=== PATIENT | female | born 1990 | race Two or more races ===

== ENCOUNTER 2025-08-29 14:18 | Emergency (ER) | payer MEDICAID, SELFPAY ==
[2025-08-29 14:19] VITALS: BMI 28.3
[2025-08-29 14:24] VITALS: BP 134/81; PULSE 65; RESP 18; TEMP 36.8; O2SAT 99
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
--- NOTE | 2025-08-29 14:36 | EKG_ITS ---
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
[2025-08-29 15:09] LABS: Basophils # (Auto) 0.1 Thou/mm3 (0.0-0.2); Basophils % (Auto) 1 % (0-2.5); Eosinophils # (Auto) 0.3 Thou/mm3 (0.0-0.5); Eosinophils % (Auto) 3 % (0-10); Hematocrit 36.8 % (36.0-46.0); Hemoglobin 12.8 g/dL (12.0-16.0); Immature Granulocytes Auto 0.02 Thou/mm3 (0.00-0.00); Lymphocytes # (Auto) 2.4 Thou/mm3 (1.0-4.8); Lymphocytes % (Auto) 26 % (10-50); Mean Corpuscular HGB Conc 34.8 g/dl (31.0-37.0); Mean Corpuscular Hemoglobin 29.8 pg (25.0-35.0); Mean Corpuscular Volume 86 fL (80-100); Monocytes # (Auto) 0.6 Thou/mm3 (0.0-0.8); Monocytes % (Auto) 6 % (0-12); Neutrophils # (Auto) 6.1 Thou/mm3 (1.8-7.7); Neutrophils % (Auto) 64 % (37-80); Nucleated Red Blood Cell # 0.00 Thou/mm3 (0.00-0.00); Nucleated Red Blood Cell % 0 /100 WBC (0); Platelet Count 225 Thou/mm3 (140-440); RDW Standard Deviation 37.4 fL (36.4-46.3); Red Blood Count 4.29 Miln/mm3 (4.00-5.20); White Blood Count 9.5 Thou/mm3 (3.6-11.0)
[2025-08-29 15:23] LABS: B-Type Natriuretic Peptide 22 pg/mL (0-100)
[2025-08-29 15:25] LABS: Alanine Aminotransferase 14 U/L (10-49); Albumin, Serum 4.6 gm/dL (3.5-5.0); Albumin/Globulin Ratio 2.0 (1.2-2.2); Alkaline Phosphatase 72 U/L (46-116); Anion Gap 9 (7-16); Aspartate Amino Transferase 19 U/L (0-34); BUN/Creatinine Ratio 14 Ratio (12-20); Bilirubin,Total 0.3 mg/dL (0.3-1.2); Blood Urea Nitrogen 11 mg/dL (9-23); Calcium 9.0 mg/dL (8.3-10.6); Calcium (Corrected) 9.0 mg/dL (8.5-10.1); Carbon Dioxide 27.2 mMol/L (20.0-31.0); Chloride 106 mMol/L (98-107); Creatinine (Component) 0.8 mg/dL (0.6-1.3); Estimated Creatinine Clearance 86.6 mL/min (>60); Globulin 2.3 gm/dL (2.3-3.5); Glucose 88 mg/dL (74-106); Osmolality,Calculated 281 (275-295); Potassium 3.9 mMol/L (3.4-5.1); Sodium 142 mMol/L (136-145); Total Protein 6.9 gm/dL (5.7-8.2); Troponin I < 0.020 ng/mL (0.0-0.045); eGFR > 60 See Note
[2025-08-29 15:30] LABS: Collection Type, Urine Clean Catch
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
[2025-08-29 16:27] LABS: Bilirubin,Urine Negative (Negative); Blood,Urine 3+ (Negative); Clarity,Urine Clear (Clear/Hazy); Color,Urine Lt-Yellow (Lt Yel-Yel); Culture Indicated,Urine Not Indicated; Glucose, Urine Negative (Negative); Ketones,Urine Negative (Negative); Leukocyte Esterase,Urine Negative (Negative); Nitrite,Urine Negative (Negative); PH,Urine 7.5 (5.0-7.0); Protein,Urine Negative (Neg - Trace); RBC,Urine 6 /hpf (0-3); Specific Gravity,Urine 1.019 (1.001-1.035); Squamous Epithelial Cell,Urine 1 /hpf (0-5); Urobilinogen,Urine Negative mg/dL (0.0-1.0); WBC,Urine < 1 /hpf (0-5)
[2025-08-29 17:07] VITALS: PULSE 68; RESP 18; TEMP 37.1; O2SAT 99
== END 2025-08-29 17:09 | disposition home or self-care (01) ==
PROVIDERS: Nurse Practitioner Family; Emergency Provider Emergency Medicine; PCP Family Medicine
DX: S09.90XA Unspecified injury of head, initial encounter (principal); Y92.410 Unspecified street and highway as the place of occurrence of the external cause
CPT/HCPCS: 36415; 70450; 72125; 80053; 81001; 83880; 84484; 85025; 93005; 99283

== ENCOUNTER 2025-09-27 06:15 | Emergency (ER) | payer MEDICAID, SELFPAY ==
[2025-09-27 06:16] VITALS: BMI 28.3
[2025-09-27 06:20] VITALS: BP 106/48; PULSE 75; RESP 19; TEMP 36.9; O2SAT 100
--- NOTE | 2025-09-27 06:22 | XR_ITS ---
Examination: CT abdomen and pelvis without contrast. Coronal 3-D reconstructions. Sagittal 2-D reconstructions. Date and time of exam: September 27, 2025, 0817 hours INDICATIONS: Lower abdominal pain and nausea beginning this morning CTDI: vol (mGy): 5.75 DLP: (mGycm): 317 Technique: Axial images of the abdomen have been obtained, 3 mm slice thickness Intravenous contrast material has not been administered. Low dose protocols were performed. One or more of the following dose reduction techniques were used; automated exposure control, adjustment of the mA and/or KV according to patient size, use of iterative reconstruction technique. Findings: Mild fluid subcapsular to liver, measuring up to 10 mm in thickness Mild fluid subcapsular to the spleen, 7 mm Liver mildly irregular in contour No gallstones No pancreatic or adrenal mass No renal or ureteral calculi Aorta normal size No bowel obstruction 15 mm fat-containing umbilical hernia Hypodense right pelvic mass 4.5 cm Cystic mass contiguous with the body of the uterus on the left side, 5 cm Anteverted uterus, intrauterine device satisfactory position Free fluid in the pelvis Contracted urinary bladder Calcified 3 mm L5-S1 disc IMPRESSION: Primary hepatocellular disease Fluid subcapsular to the liver and spleen, clinical correlation advised No pericecal inflammatory change Cystic mass contiguous with the body of the uterus on the left side of the pelvis 5 cm, hypodense right pelvic mass 4.5 cm, recommend pelvic sonography follow-up
--- NOTE | 2025-09-27 06:22 | EKG_ITS ---
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
--- NOTE | 2025-09-27 06:23 | EDNOTE_ITS ---
<Statement entered by Irma Nugent MD - 09/27/25 17:46> As co-signing physician, I was present and available for consult prn. I concur with the plan and care as documented by the midlevel provider. ED Abdominal Pain RME/HPI General Chief Complaint: Abdominal Pain Stated complaint: ABD PAIN,DIZZY Time seen by provider: 09/27/25 06:19 Arrival date/time: 09/27/25 06:15 35-year-old female with no known medical history presents to the emergency room with a chief complaint of lower abdominal and pelvic pain, dizziness and lightheadedness x 1 day Source: patient Mode of arrival: ambulatory Limitations: no limitations Related Data Previous Rx's ?Medication ?Instructions ?Recorded diphenhydramine HCl 50 mg capsule 50 mg PO Q6H PRN ITC JEN #30 caps 10/27/17 epinephrine 0.3 mg/0.3 mL 0.3 mg (0.3 mL) IM UD #1 ea 10/27/17 injection, auto-injector (EpiPen 2-Eliseo) famotidine 20 mg tablet (Pepcid) 20 mg PO BID #14 tabs 10/27/17 prednisone 20 mg tablet 40 mg (2 x 20 mg) PO QAM #10 tabs 10/27/17 ketorolac 10 mg tablet 10 mg PO BID #14 tabs hydrocodone 5 mg-acetaminophen 325 1 tab PO BID PRN pa in #10 tabs 09/27/25 mg tablet Allergies Allergy/AdvReac Type Severity Reaction Status Date / Time bee venom protein (honey bee) Allergy Verified 09/27/25 06:16 Review of Systems Review of Systems Systems Reviewed: All systems reviewed, normal except as documented Constitutional Constitutional: Reports system reviewed and no additional complaints, except as documented, Denies fatigue, Denies fever(s), Denies headache(s) and Denies weakness Eyes Eyes: Reports system reviewed and no additional complaints, except as documented, Denies blurry vision and Denies change in vision ENT Ears, Nose, Mouth, and Throat: Reports system reviewed and no additional complaints, except as documented, Denies otalgia, Denies headache(s), Denies nasal congestion, Denies throat swelling and Reports vertigo Cardiovascular Cardiovascular: Reports system reviewed and no additional complaints, except as documented, Denies chest pain, Denies dyspnea and Denies dyspnea on exertion Respiratory Respiratory: Reports system reviewed and no additional complaints, except as documented, Denies chest congestion, Denies cough, Denies dyspnea, Denies dyspnea on exertion and Denies wheezing Gastrointestinal Gastrointestinal: Reports system reviewed and no additional complaints, except as documented, Reports abdominal pain, Reports cramping, Denies nausea and Denies vomiting Genitourinary Genitourinary: Reports system reviewed and no additional complaints, except as documented Musculoskeletal Musculoskeletal: Reports system reviewed and no additional complaints, except as documented and Denies back pain Integumentary/Breasts Skin/Breast: Reports system reviewed and no additional complaints, except as documented and Denies wounds Neurologic Neurologic: Reports system reviewed and no additional complaints, except as documented, Denies confusion, Denies headache(s), Denies lack of coordination, Reports vertigo and Denies weakness Psychiatric Psychiatric: Reports system reviewed and no additional complaints, except as documented, Denies anxiety, Denies confusion, Denies depression, Denies paranoia, Denies suicidal ideation and Denies tactile hallucinations Endocrine Endocrine: Reports system reviewed and no additional complaints, except as documented and Denies fatigue Hematologic/Lymphatic Hematologic/Lymphatic: Reports system reviewed and no additional complaints, except as documented and Denies lymphadenopathy Allergic/Immunologic Allergic/Immunologic: Reports system reviewed and no additional complaints, except as documented, Denies throat swelling, Denies urticaria and Denies wheezing Past Medical History Past Medical History CARDIAC: Negative Congestive Heart Failure RESPIRATORY: Negative Chronic Obstructive Pulmonary Disease (COPD) GENITOURINARY: Negative Renal Disease ENDOCRINE: Negative Diabetes Mellitus Type 1 or Diabetes Mellitus Type 2 Social History SMOKING STATUS: Never smoker ED Exam General Limitations: Present no limitations General appearance: Present alert and in no apparent distress Head Head exam: Present atraumatic Eye Eye exam: Present normal appearance, PERRL and EOMI ENT ENT exam: Present normal exam, normal oropharynx and mucous membranes moist Neck Neck exam: Present normal inspection, full ROM and trachea midline Chest Chest inspection: Present normal inspection and symmetric chest wall rise Respiratory Respiratory exam: Present normal lung sounds bilaterally; Absent respiratory distress, wheezes, stridor, accessory muscle use or prolonged expiratory phase Cardiovascular Cardiovascular exam: Present regular rate, normal rhythm, normal heart sounds, +S1 and +S2; Absent tachycardia Abdominal Exam Abdominal exam: Present soft, tenderness and normal bowel sounds Abdominal tenderness: Present RLQ, LLQ, suprapubic and mild Extremities Exam Extremities exam: Present normal inspection and full ROM Back Exam Back exam: Present normal inspection and full ROM Neurological Exam Neurological exam: Present alert, oriented X3 and CN II-XII intact Psychiatric Psychiatric exam: Present normal affect and normal mood Skin Skin exam: Present warm, dry, intact and normal color Course Quality Measures none Orders Category Date Time Status EKG (ED ONLY) *Do not use* NOW Care 09/27/25 06:[address] abdomen pelvis wo con Stat Exams 09/27/25 06:22 Completed EKG (ED Only) Stat Exams 09/27/25 06:22 Draft US pelvic complete Stat Exams 09/27/25 09:57 Completed BNP [B-Type Natriuretic Peptide] Stat Lab 09/27/25 06:39 Completed CBC Stat Lab 09/27/25 06:39 Completed CMP [Comprehensive Metabolic Panel] Stat Lab 09/27/25 06:39 Completed HCG Qualitative,Urine Stat Lab 09/27/25 06:56 Completed Lipase Stat Lab 09/27/25 06:39 Completed Troponin I Stat Lab 09/27/25 06:39 Completed UA [Urinalysis] Stat Lab 09/27/25 06:56 Completed Urine Culture Stat Lab 09/27/25 06:56 Received HYDROcodone*/APAP 5/325 [[place] 5/325] Med 09/27/25 10:38 Discontinued 1 tab PO X1 ONE Ondansetron Odt [Zofran Odt] Med 09/27/25 10:38 Discontinued 4 mg PO X1 ONE Vital Signs Vital signs: Vital Signs Temperature 98.4 F 09/27/25 06:20 Pulse Rate 75 09/27/25 06:20 Respiratory Rate 19 09/27/25 06:20 Blood Pressure 106/48 L 09/27/25 06:20 Pulse Oximetry (%) 100 09/27/25 06:20 Oxygen Delivery Method Room Air 09/27/25 06:20 Abdominal Pain MDM MDM Narrative MDM Narrative:: 35-year-old female with no known medical history presents to the emergency room with a chief complaint of lower abdominal and pelvic pain, dizziness and lightheadedness x 1 day Patient is hemodynamically stable and in no apparent distress Physical examination shows lower pelvic pain under the umbilicus with palpation. Patient denies any vomiting any nausea any diarrhea CT of the abdomen and pelvis was completed and shows a cystic mass in the left side of the pelvis. There is also a right pelvic mass. Pelvic ultrasonography was completed and shows a complex cystic solid mass in the left adnexal region. There is no white count. There is no UTI. hCG was negative. Patient was discharged and educated to follow-up with her primary care provider as a referral to an [facility] for further management as indicated Patient was discharged and educated to follow-up with primary care provider in the next 24 to 48 hours and return to the emergency room for any evidence of worsening signs or symptoms Patient data External records reviewed:: [facility] previous records Clinical information provided by:: patient Social determinants that could affect healthcare access:: none Patient has the following chronic illnesses:: No chronic illness How is presenting disease/condition affected by chronic disease/condition?: no chronic disease Evaluation data The following diagnostics were reviewed and interpreted by me:: lab results and radiology exam(s) Lab and/or radiology exams considered but not ordered:: Labs and radiology exams considered and ordered Interpretation Summary: CT abdomen and pelvis-Findings: Mild fluid subcapsular to liver, measuring up to 10 mm in thickness Mild fluid subcapsular to the spleen, 7 mm Liver mildly irregular in contour No gallstones No pancreatic or adrenal mass No renal or ureteral calculi Aorta normal size No bowel obstruction 15 mm fat-containing umbilical hernia Hypodense right pelvic mass 4.5 cm Cystic mass contiguous with the body of the uterus on the left side, 5 cm Anteverted uterus, intrauterine device satisfactory position Free fluid in the pelvis Contracted urinary bladder Calcified 3 mm L5-S1 disc IMPRESSION: Primary hepatocellular disease Fluid subcapsular to the liver and spleen, clinical correlation advised No pericecal inflammatory change Cystic mass contiguous with the body of the uterus on the left side of the pelvis 5 cm, hypodense right pelvic mass 4.5 cm, recommend pelvic sonography follow-up Ultrasound abdomen-FINDINGS: Uterus 9.4 cm intrauterine device satisfactory position Right ovary 4.3 cm arterial flow Left adnexa a heterogeneous oval mass, complex cystic and solid, vascular 9.6 x 3.4 x 7.7 cm with adjacent mild free fluid IMPRESSION: Complex cystic solid mass in the left adnexal region 9.6 x 3.4 x 7.7 cm, differential would include tubo-ovarian abscess, complex left ovarian tumor, ruptured ectopic in the appropriate clinical setting, clinical correlation advised Medications / Prescriptions Medications or Prescriptions considered but not ordered:: No medication given Medication administrations:: Medication Administration History Discontinued Medications Hydrocodone Bitart/Acetaminophen (Hydrocodone/Apap 5/325 Tablet) 1 tab PO X1 ONE Stop: 09/27/25 10:39 Last Admin: 09/27/25 11:15 Dose: 1 tab Documented By: DO Ondansetron HCl (Ondansetron Odt 4 Mg Tabrap) 4 mg PO X1 ONE; Protocol Stop: 09/27/25 10:39 Last Admin: 09/27/25 11:16 Dose: 4 mg Documented By: DO Medication given Consultations Consultation(s) initiated? (list below): No Diagnosis Differential diagnosis abdominal pain: abdominal pain, acute appendicitis, gastroenteritis and other (Pelvic mass) Most likely diagnosis given after review of the tests above:: Pelvic mass Admission Indicated Admission indicated?: not indicated Admission Request Was there a request for admission?: No Disposition Plan Disposition Plan: Discharge Discharge Attestation Discharge Attestation: The patient and all family members were given an opportunity to ask questions and understood the discharge instructions. Discharge instructions specifically effects, indications for sooner follow up or return to the emergency department, and the expected course of current diagnosis. Patient condition: Stable Discharge Plan Plan Patient Disposition: HOME (Self Care) Discharge Disposition comment: Stable Prescriptions/Referrals Prescriptions/Med Rec: New hydrocodone-acetaminophen 5-325 mg tablet 1 tab PO BID MDD 10mg PRN (Reason: pain) Qty: 10 0RF No Action diphenhydramine HCl 50 MG capsule 50 mg PO Q6H PRN (Reason: ITCHING) Qty: 30 0RF prednisone 20 MG tablet 40 mg PO QAM Qty: 10 0RF famotidine [Pepcid] 20 MG tablet 20 mg PO BID Qty: 14 0RF Rx Instructions: TO SUPPRESS GASTRIC ACID SECRETION epinephrine [EpiPen 2-Eliseo] 0.3 MG/0.3 ML auto-injector 0.3 mg IM UD Qty: 1 0RF ketorolac 10 mg tablet 10 mg PO BID Qty: 14 0RF Referrals: Viraj Morales PA-C [Primary Care Provider] - In 1 week Problem List Clinical Impression: Pelvic mass Patient/Caregiver Discharge Instructions Additional Instructions: Please follow-up with your primary care provider next 24 to 48 hours You will need a referral to an [facility] for further management of this pelvic mass. Your CT of your abdomen and pelvis and ultrasound showed a pelvic mass. Please follow-up with your primary care provider for further management. I attached a copy of your CT report and ultrasound report on your discharge paperwork For any evidence of worsening signs or symptoms return to the emergency room immediately Print Language: [place] Stand Alone Forms: Janis Award Info., Work/School Release, Patient Portal Info Letter PA/TRANSPORT ASSISTANT Supervising Physician PA/TRANSPORT ASSISTANT Supervising Physician: Dr. Terry
[2025-09-27 06:58] LABS: Basophils # (Auto) 0.1 Thou/mm3 (0.0-0.2); Basophils % (Auto) 0 % (0-2.5); Eosinophils # (Auto) 0.2 Thou/mm3 (0.0-0.5); Eosinophils % (Auto) 1 % (0-10); Hematocrit 33.2 % (36.0-46.0); Hemoglobin 11.5 g/dL (12.0-16.0); Immature Granulocytes Auto 0.03 Thou/mm3 (0.00-0.00); Lymphocytes # (Auto) 2.7 Thou/mm3 (1.0-4.8); Lymphocytes % (Auto) 23 % (10-50); Mean Corpuscular HGB Conc 34.6 g/dl (31.0-37.0); Mean Corpuscular Hemoglobin 29.7 pg (25.0-35.0); Mean Corpuscular Volume 86 fL (80-100); Monocytes # (Auto) 0.7 Thou/mm3 (0.0-0.8); Monocytes % (Auto) 6 % (0-12); Neutrophils # (Auto) 8.1 Thou/mm3 (1.8-7.7); Neutrophils % (Auto) 69 % (37-80); Nucleated Red Blood Cell # 0.00 Thou/mm3 (0.00-0.00); Nucleated Red Blood Cell % 0 /100 WBC (0); Platelet Count 230 Thou/mm3 (140-440); RDW Standard Deviation 37.9 fL (36.4-46.3); Red Blood Count 3.87 Miln/mm3 (4.00-5.20); White Blood Count 11.7 Thou/mm3 (3.6-11.0)
[2025-09-27 07:03] LABS: Collection Type, Urine Clean Catch
[2025-09-27 07:07] LABS: B-Type Natriuretic Peptide < 20 pg/mL (0-100)
[2025-09-27 07:10] LABS: Alanine Aminotransferase 29 U/L (10-49); Albumin, Serum 4.4 gm/dL (3.5-5.0); Albumin/Globulin Ratio 1.5 (1.2-2.2); Alkaline Phosphatase 67 U/L (46-116); Anion Gap 11 (7-16); Aspartate Amino Transferase 25 U/L (0-34); BUN/Creatinine Ratio 13 Ratio (12-20); Bilirubin,Total 0.9 mg/dL (0.3-1.2); Blood Urea Nitrogen 13 mg/dL (9-23); Calcium 8.9 mg/dL (8.3-10.6); Calcium (Corrected) 8.9 mg/dL (8.5-10.1); Carbon Dioxide 25.3 mMol/L (20.0-31.0); Chloride 104 mMol/L (98-107); Creatinine (Component) 1.0 mg/dL (0.6-1.3); Estimated Creatinine Clearance 69.3 mL/min (>60); Globulin 2.9 gm/dL (2.3-3.5); Glucose 136 mg/dL (74-106); Lipase 29 U/L (12-53); Osmolality,Calculated 281 (275-295); Potassium 3.9 mMol/L (3.4-5.1); Sodium 140 mMol/L (136-145); Total Protein 7.3 gm/dL (5.7-8.2); Troponin I < 0.020 ng/mL (0.0-0.045); eGFR > 60 See Note
[2025-09-27 07:45] LABS: Bilirubin,Urine Negative (Negative); Blood,Urine 2+ (Negative); Color,Urine Yellow (Lt Yel-Yel); Glucose, Urine Negative (Negative); Ketones,Urine Negative (Negative); Leukocyte Esterase,Urine Positive (Negative); Nitrite,Urine Negative (Negative); PH,Urine 5.5 (5.0-7.0); Protein,Urine 1+ (Neg - Trace); RBC,Urine 3 /hpf (0-3); Specific Gravity,Urine 1.034 (1.001-1.035); Squamous Epithelial Cell,Urine 8 /hpf (0-5); Urobilinogen,Urine Negative mg/dL (0.0-1.0); WBC,Urine 11 /hpf (0-5)
[2025-09-27 07:52] LABS: HCG Qualitative,Urine Negative
[2025-09-27 07:54] LABS: Clarity,Urine Hazy (Clear/Hazy)
[2025-09-27 08:22] VITALS: BP 115/74; PULSE 69; RESP 18; TEMP 36.8; O2SAT 100
--- NOTE | 2025-09-27 09:57 | XR_ITS ---
Examination: Pelvic ultrasound, transabdominal, complete Technique: Transabdominal ultrasound of the pelvis performed using grayscale imaging Date and time of exam: September 27, 2025, 1103 hours Vaginal bleeding and pelvic pain today FINDINGS: Uterus 9.4 cm intrauterine device satisfactory position Right ovary 4.3 cm arterial flow Left adnexa a heterogeneous oval mass, complex cystic and solid, vascular 9.6 x 3.4 x 7.7 cm with adjacent mild free fluid IMPRESSION: Complex cystic solid mass in the left adnexal region 9.6 x 3.4 x 7.7 cm, differential would include tubo-ovarian abscess, complex left ovarian tumor, ruptured ectopic in the appropriate clinical setting, clinical correlation advised
[2025-09-27 10:26] VITALS: BP 118/81; PULSE 86; RESP 18; TEMP 36.7; O2SAT 100
[2025-09-27] MEDS: HYDROcodone/APAP 5/325 TABLET 1 TAB PO (11:15)
[2025-09-27] MEDS: ONDANSETRON ODT 4 MG TABRAP PO (11:16)
== END 2025-09-27 15:17 | disposition home or self-care (01) ==
PROVIDERS: Nurse Practitioner Family; Emergency Provider Emergency Medicine; PCP Physician Assistant
DX: N83.8 Other noninflammatory disorders of ovary, fallopian tube and broad ligament (principal); N85.8 Other specified noninflammatory disorders of uterus; K76.9 Liver disease, unspecified; R42 Dizziness and giddiness
CPT/HCPCS: 36415; 74176; 76856; 80053; 81001; 81025; 83690; 83880; 84484; 85025; 87086; 93005; 99283; Q0162; A9270